=== PATIENT | female | born 1970 | race Caucasian/White ===

== ENCOUNTER 2022-02-26 17:47 | Emergency (ER) | payer MEDICARE, MEDICAID ==
[~2022-02-26] VITALS: Ht 162.6 cm; Wt 79.5 kg
[2022-02-26] MEDS ORDERED: ALEN10TA33 PO (17:59)
[2022-02-26] MEDS ORDERED: MEDR150V13 IM (17:59)
[2022-02-26] MEDS ORDERED: ATOR20TA86 PO (17:59)
[2022-02-26] MEDS ORDERED: CALC-1000 PO (17:59)
[2022-02-26] MEDS ORDERED: ASCO500 PO (17:59)
[2022-02-26] MEDS ORDERED: LORA10TA7 PO (17:59)
[2022-02-26] MEDS ORDERED: AMLO-258 PO (17:59)
[2022-02-26 20:56] VITALS: BP 135/74
[2022-02-26] MEDS ORDERED: ALBU8.5H8 IH (20:57)
[2022-02-26] MEDS ORDERED: METH4TAB3 PO (20:57)
[2022-02-26] MEDS ORDERED: BENZ-70 PO (20:57)
[2022-02-26 21:16] LABS: COVID AG,FIA SOURCE NASOPHARYNGEAL
== END 2022-02-27 00:51 | disposition home or self-care (01) ==
LOC: EMS 17:56
DX: U07.1 COVID-19 (principal); I10 Essential (primary) hypertension; J39.9 Disease of upper respiratory tract, unspecified; M81.0 Age-related osteoporosis without current pathological fracture; R05.9 Cough, unspecified; R09.89 Other specified symptoms and signs involving the circulatory and respiratory systems; R09.81 Nasal congestion
CPT/HCPCS: 99283

== ENCOUNTER 2023-09-20 09:40 | Emergency (ER) | payer MEDICARE, OTHER ==
[~2023-09-20] VITALS: Ht 152.4 cm; Wt 59.5 kg
[~2023-09-20 09:40] MED LIST: ALBU8.5H8 IH; ALEN10TA33 PO; AMLO-258 PO; ASCO500 PO; ATOR20TA PO; BENZ-227 PO; CALC-1000 PO; LORA10TA7 PO; MEDR150V13 IM; METH4TAB3 PO
[2023-09-20 09:41] VITALS: TEMP 98.4
[2023-09-20] MEDS ORDERED: BENZ100C68 PO (10:00)
[2023-09-20] MEDS ORDERED: ALEN70TA65 PO (10:00)
[2023-09-20 10:20] LABS: BASOPHILS % (AUTO) 0.7 % (0.0-2.0); EOSINOPHILS % (AUTO) 0.4 % (1.0-6.0); HEMOGLOBIN 13.8 g/dL (12.0-16.0); LYMPHOCYTES # (AUTO) 2.1 K/uL (1.0-4.8); LYMPHOCYTES % (AUTO) 30.1 % (22.0-44.0); MEAN CORPUSCULAR HEMOGLOBIN 31.9 pg (26.0-34.0); MEAN CORPUSCULAR VOLUME 97 fL (80-100); MONOCYTES # (AUTO) 0.5 K/uL (0.1-1.0); MONOCYTES % (AUTO) 7.1 % (2.0-9.0); NEUTROPHILS # (AUTO) 4.3 K/uL (1.8-7.7); NEUTROPHILS % (AUTO) 61.7 % (40.0-70.0); PLATELET COUNT (AUTO) 262 K/uL (150-450); RED BLOOD CELL COUNT(AUTO) 4.34 MIL/uL (4.00-5.20); RED CELL DISTRIBUTION WIDTH 13.3 % (11.5-14.5)
[2023-09-20 10:37] LABS: ANION GAP 9 mmol/L (8-16); CALCIUM, TOTAL 9.3 mg/dL (8.8-10.5); CARBON DIOXIDE 28 mmol/L (22-29); CHLORIDE 106 mmol/L (98-107); CREATININE 0.71 mg/dL (0.60-1.30); GLOMERULAR FILTR. RATE CALC > 60 mL/min (>60); GLUCOSE,RANDOM 95 mg/dL (70-110); POTASSIUM 4.4 mmol/L (3.5-5.1); SODIUM SERUM 143 mmol/L (136-145); UREA NITROGEN, BLOOD 17 mg/dL (7-18)
[2023-09-20 10:42] LABS: ALANINE AMINOTRANSFERASE 19 U/L (12-78); ALBUMIN 3.7 g/dL (3.4-5.0); ALKALINE PHOSPHATASE 97 U/L (46-116); ASPARTATE AMINOTRANSFERASE 13 U/L (15-37); BILIRUBIN,TOTAL 0.2 mg/dL (0.1-1.0); TOTAL PROTEIN, SERUM 7.7 g/dL (6.4-8.2)
[2023-09-20 10:46] LABS: TROPONIN I-HIGH SENSITIVITY 4 ng/L (<51)
[2023-09-20] MEDS ORDERED: ACET-66 PO (14:53)
[2023-09-20] MEDS ORDERED: IBUP-1554 PO (14:53)
[2023-09-20] MEDS ORDERED: CALC-1124 PO (15:01)
[2023-09-20] MEDS ORDERED: AMLO10TA55 PO (15:01)
[2023-09-20] MEDS: ACETAMINOPHEN 500 MG TABLET PO ONE (15:05)
[2023-09-20] MEDS: METHOCARBAMOL 500 MG TABLET PO ONE (15:06)
[2023-09-20] MEDS: IBUPROFEN 600 MG TABLET PO ONE (15:06)
[2023-09-20 16:30] VITALS: BP 129/73; PULSE 87; RESP 18
== END 2023-09-20 16:50 | disposition home or self-care (01) ==
LOC: EMS 09:44
DX: S93.601A Unspecified sprain of right foot, initial encounter (principal); F79 Unspecified intellectual disabilities; I10 Essential (primary) hypertension; W06.XXXA Fall from bed, initial encounter; Y93.89 Activity, other specified; Y92.89 Other specified places as the place of occurrence of the external cause; Y99.8 Other external cause status
CPT/HCPCS: 73502; 80053; 84484; 85025; 99284

== ENCOUNTER 2023-10-19 11:43 | Emergency (ER) | payer MEDICARE, OTHER ==
[~2023-10-19] VITALS: Ht 154.9 cm; Wt 72.7 kg
[~2023-10-19 11:43] MED LIST changes: +ACET-66 PO; -ALBU8.5H8 IH; -ALEN10TA33 PO; +ALEN70TA65 PO; +AMLO10TA55 PO; -BENZ-227 PO; +BENZ100C68 PO; -CALC-1000 PO; +CALC-1124 PO; +IBUP-1554 PO; -METH4TAB3 PO
[2023-10-19 11:52] VITALS: BP 121/61; PULSE 80; RESP 18; TEMP 96.3
== END 2023-10-19 13:18 | disposition home or self-care (01) ==
LOC: EMS 11:43
DX: R62.50 Unspecified lack of expected normal physiological development in childhood (principal); I10 Essential (primary) hypertension
CPT/HCPCS: 99281; Z7502